=== PATIENT | male | born 1990 | race Caucasian/White ===

== ENCOUNTER 2019-06-16 09:42 | Emergency (ER) | payer MEDICAID ==
[~2019-06-16] VITALS: Ht 167.6 cm; Wt 55.5 kg
[2019-06-16 09:44] VITALS: BP 137/83
--- NOTE | 2019-06-16 09:50 | NUR ---
PT REQUESTED TO WALK TO ROOM AND REPORTS HE IS NOT ABLE TO GIVE A URINE SAMPLE AT THIS TIME.
[2019-06-16 10:21] LABS: BASOPHILS % (AUTO) 0.6 % (0-1); EOSINOPHILS # (AUTO) 0.1 X10'3 (0-0.9); EOSINOPHILS % (AUTO) 1.7 % (0-6); HEMATOCRIT 45.3 % (42.0-52.0); HEMOGLOBIN 15.7 g/dl (14.0-17.9); LYMPHOCYTES # (AUTO) 2.2 X10'3 (1.1-4.8); LYMPHOCYTES % (AUTO) 36.3 % (21-51); MEAN CORPUSCULAR HEMOGLOBIN 31.7 PG (27.0-31.0); MEAN CORPUSCULAR HGB CONC 34.6 g/dL (33.0-36.5); MEAN CORPUSCULAR VOLUME 91.8 FL (78-98); MONOCYTES # (AUTO) 0.5 X10'3 (0-0.9); MONOCYTES % (AUTO) 7.3 % (2-12); NEUTROPHILS # (AUTO) 3.3 X10'3 (1.8-7.7); NEUTROPHILS % (AUTO) 54.1 % (42-75); PLATELET COUNT 213 X10'3 (140-440); RED BLOOD COUNT 4.93 X10'6 (4.70-6.10); RED CELL DISTRIBUTION WIDTH 13.3 % (11.5-14.5); WHITE BLOOD COUNT 6.2 X10'3 (4.5-11.0)
[2019-06-16 10:35] LABS: CLARITY,URINE CLEAR (Clear); COLOR,URINE YELLOW (Yellow); GLUCOSE, URINE NEGATIVE (Neg); KETONES,URINE NEGATIVE (Neg); LEUKOCYTE ESTERASE ,URINE NEGATIVE (Neg); NITRITES, URINE NEGATIVE (Neg); OCCULT BLOOD,URINE NEGATIVE (Neg); PROTEIN,URINE NEGATIVE (Neg); UROBILINOGEN,URINE 0.2 E.U/dL (0.2-1.0)
[2019-06-16 10:38] LABS: GLUCOSE 98 MG/DL (70-104); POTASSIUM 4.1 MMOL/L (3.5-5.1); SODIUM 140 MMOL/L (135-145)
[2019-06-16 10:39] LABS: ALANINE AMINOTRANSFERASE 38 U/L (12-78); ALBUMIN 4.3 G/DL (3.4-5.0); ALBUMIN/GLOBULIN RATIO 1.2 (1.1-1.5); ALKALINE PHOSPHATASE 56 IU/L (46-116); ANION GAP 10 (8-16); ASPARTATE AMINO TRANSFERASE 37 U/L (10-37); BILIRUBIN,TOTAL 0.5 MG/DL (0.1-1.0); BLOOD UREA NITROGEN 9 MG/DL (7-18); BUN/CREATININE RATIO 9.3 (5.4-32.0); CALCIUM 9.8 MG/DL (8.5-10.1); CHLORIDE 102 MMOL/L (99-107); CREATININE 0.97 MG/DL (0.60-1.10); LIPASE 87 U/L (73-393); TOTAL CARBON DIOXIDE 27.7 MMOL/L (24-32); eGFR 90 ML/MIN
[2019-06-16 10:45] LABS: UA COLLECTION TYPE CLN CATCH MIDSTREAM
[2019-06-16] MEDS ORDERED: ondansetron 4mg rapidly disintigrating tab PO ONE (11:10)
[2019-06-16] MEDS ORDERED: ONDA4TAB6 PO (11:48)
[2019-06-16 13:20] LABS: OCCULT BLOOD STOOL NEGATIVE (Neg)
== END 2019-06-16 12:09 | disposition home or self-care (01) ==
LOC: ER 09:43
DX: K29.70 Gastritis, unspecified, without bleeding (principal); Z79.899 Other long term (current) drug therapy
CPT/HCPCS: 36415; 80053; 81003; 82272; 83690; 85025; 99283

== ENCOUNTER 2019-10-02 09:32 | Emergency (ER) | payer MEDICAID, OTHER ==
[~2019-10-02] VITALS: Ht 167.6 cm; Wt 53.0 kg
[~2019-10-02 09:32] MED LIST: ONDA4TAB6 PO
[2019-10-02 09:52] VITALS: BP 143/91
[2019-10-02] MEDS ORDERED: LIDOcaine Viscous 15ml cup MM ONE (10:40)
[2019-10-02] MEDS ORDERED: mag hydrox/Alum hydrox/simeth 30ml oral suspension PO ONE (10:40)
[2019-10-02] MEDS ORDERED: LIDO20SO16 PO (10:55)
== END 2019-10-02 11:10 | disposition home or self-care (01) ==
LOC: ER 09:33
DX: J02.9 Acute pharyngitis, unspecified (principal); Z79.899 Other long term (current) drug therapy
CPT/HCPCS: 99283

== ENCOUNTER 2022-05-14 10:11 | Emergency (ER) | payer MEDICAID ==
[~2022-05-14] VITALS: Ht 167.6 cm; Wt 55.4 kg
[~2022-05-14 10:11] MED LIST changes: +LIDO20SO16 PO
[2022-05-14] MEDS ORDERED: ondansetron 4mg rapidly disintigrating tab PO ONE (13:45)
[2022-05-14] MEDS ORDERED: amoxicillin 250mg capsule PO ONE (13:45)
[2022-05-14 14:24] LABS: BASOPHILS % (AUTO) 0.5 % (0-1); EOSINOPHILS # (AUTO) 0.2 X10'3 (0-0.9); EOSINOPHILS % (AUTO) 1.8 % (0-6); HEMATOCRIT 43.7 % (42.0-52.0); HEMOGLOBIN 14.7 g/dl (14.0-17.9); LYMPHOCYTES # (AUTO) 1.7 X10'3 (1.1-4.8); MEAN CORPUSCULAR HEMOGLOBIN 30.6 PG (27.0-31.0); MEAN CORPUSCULAR HGB CONC 33.7 g/dL (33.0-36.5); MEAN CORPUSCULAR VOLUME 90.7 FL (78-98); MEAN PLATELET VOLUME 9.6 FL (7.4-10.4); MONOCYTES # (AUTO) 0.7 X10'3 (0-0.9); MONOCYTES % (AUTO) 7.5 % (2-12); NEUTROPHILS # (AUTO) 6.2 X10'3 (1.8-7.7); NEUTROPHILS % (AUTO) 70.2 % (42-75); PLATELET COUNT 214 X10'3 (140-440); RED BLOOD COUNT 4.82 X10'6 (4.70-6.10); WHITE BLOOD COUNT 8.8 X10'3 (4.5-11.0)
[2022-05-14 14:29] LABS: ALANINE AMINOTRANSFERASE 25 U/L (12-78); ALBUMIN 4.6 G/DL (3.4-5.0); ALBUMIN/GLOBULIN RATIO 1.4 (1.1-1.5); ALKALINE PHOSPHATASE 50 IU/L (46-116); ANION GAP 7 (8-16); ASPARTATE AMINO TRANSFERASE 23 U/L (10-37); BILIRUBIN,TOTAL 0.4 MG/DL (0.1-1.0); BLOOD UREA NITROGEN 9 MG/DL (7-18); CALCIUM 9.6 MG/DL (8.5-10.1); CHLORIDE 105 MMOL/L (99-107); CREATININE 0.82 MG/DL (0.60-1.10); GLUCOSE 91 MG/DL (70-104); POTASSIUM 4.1 MMOL/L (3.5-5.1); SODIUM 141 MMOL/L (135-145); TOTAL CARBON DIOXIDE 28.8 MMOL/L (24-32); TOTAL PROTEIN 7.9 G/DL (6.4-8.2); eGFR > 90 ML/MIN
[2022-05-14 14:48] VITALS: BP 132/70
--- NOTE | 2022-05-15 12:24 | NUR ---
Patient called regarding antibiotic that was to be prescribed for patient yesterday. patient states that pharmacy never received it. Spoke with Dr. Clement due to prescription not even being added to report. Dr. Clement agreed that patient was to be prescribed an antibiotic. Amoxicillin 500 mg 1 tab PO TID x 10 days total 30 0 refills. Spoke with Patient who would like rx to be called [facility] to [facility]. Spoke with pharmacist patient aware.
== END 2022-05-14 15:14 | disposition home or self-care (01) ==
LOC: ER 10:12
DX: R00.2 Palpitations (principal); Z79.899 Other long term (current) drug therapy
CPT/HCPCS: 36415; 71045; 80053; 83880; 84484; 85025; 93005; 99285